=== PATIENT | male | born 1985 | race Caucasian/White ===

== ENCOUNTER 2022-10-02 10:17 | Emergency (ER) | payer OTHER, SELFPAY ==
[2022-10-02] VITALS (11 sets, daily range): BP systolic 95–118; BP diastolic 60–91; PULSE 102–120; RESP 15–25; TEMP 36.5–36.8; O2SAT 92–95; BMI 49.9
--- NOTE | 2022-10-02 10:36 | ECG_ITS ---
[facility] Test Date: 2022-10-02 Pat Name: SADIA MEJIA Department: Room: - Gender: Male Vc++ Developer: : 1985 Requested By: YVETTE QUINTANILLA Order Number: [id number] Reading MD: VINCENT WINKLER Measurements Intervals [place] Rate: 114 P: 73 DE: 136 QRS: 59 QRSD: 84 T: 13 QT: 350 QTc: 418 Interpretive Statements 1120 Sinus tachycardia 9140 abnormal rhythm ECG No previous ECG available for comparison Electronically Signed On 10-03-2022 6:40:24 EDT by VINCENT WINKLER
--- NOTE | 2022-10-02 10:36 | XR_ITS ---
The [address] [address] Patient Name: SADIA MEJIA MRN: [id number] date: 1985 Sex: M Assigned Patient Location: ER Current Patient Location: ER Accession/Order Number: [id number] Exam Date: 10/02/2022 10:52 Report Date: 10/02/2022 11:07 At the request of: DESHAUN WEI Procedure: XR chest 1V EXAM: XR chest 1V HISTORY: Shortness of breath. COMPARISON: None. TECHNIQUE: AP erect portable chest radiograph performed. FINDINGS: The trachea is normal. The heart size is normal. The cardiac mediastinal silhouette and hilar shadows are unremarkable. There are patchy densities within the lower chest bilaterally. There is no pleural effusion or pulmonary vascular congestion. There is no pneumothorax or osseous abnormality. XR/XR chest 1V IMPRESSION: Patchy densities within the lower chest bilaterally. In the right clinical setting this could represent a pneumonia. Appropriate medical treatment and a follow-up chest radiograph to confirm complete resolution recommended. Electronically authenticated by: AVELINA CLINE Date: 10/02/2022 11:07
[2022-10-02 10:43] LABS: Glucometer 239 mg/dL (74-106)
[2022-10-02 10:50] LABS: Basophils Absolute Auto 0.1 10^3/uL (0.0-0.1); Basophils Percent Auto 0.7 % (0.2-2.0); Eosinophils Absolute Auto 0.1 10^3/uL (0.0-0.7); Eosinophils Percent Auto 0.7 % (0.9-7.0); Hematocrit 43.8 % (42.0-54.0); Hemoglobin 15.1 g/dL (14.0-18.0); Immature Granulocytes Abs Auto 0.43 10^3/uL (0.00-0.03); Immature Granulocytes Pct Auto 4.4 % (0.0-0.5); Lymphocytes Absolute Auto 1.7 10^3/uL (1.2-3.8); Lymphocytes Percent Auto 17.8 % (20.5-60.0); Mean Corpuscular HGB Conc 34.5 g/dL (29.9-35.2); Mean Corpuscular Hemoglobin 29.1 pg (25.9-34.0); Mean Corpuscular Volume 84.4 fL (80.0-94.0); Mean Platelet Volume 10.9 fL (9.5-13.5); Monocytes Absolute Auto 0.4 10^3/uL (0.3-0.8); Monocytes Percent Auto 4.4 % (1.7-12.0); Platelet Count 625 10^3/uL (150-450); Red Blood Count 5.19 10^6/uL (4.70-6.10); Red Cell Distribution Width 14.6 % (11.0-15.0); White Blood Count 9.7 10^3/uL (4.0-11.0)
[2022-10-02] MEDS: 0.9 % SODIUM CHLORIDE 1,000 ML 1000 ML (10:51)
[2022-10-02 11:06] LABS: Acetone NEGATIVE (NEGATIVE)
[2022-10-02 11:16] LABS: Lactate/Lactic Acid 2.2 mmol/L (0.4-2.0)
[2022-10-02 11:18] LABS: Alanine Aminotransferase 86 U/L (16-63); Albumin Globulin Ratio 0.6; Alkaline Phosphatase 138 U/L (46-116); Anion Gap 19.4; Aspartate Amino Transferase 81 U/L (15-37); BUN Creatinine Ratio 21.6; Bilirubin Total 0.6 mg/dL (0.2-1.0); Calcium 9.5 mg/dL (8.5-10.1); Carbon Dioxide 20.8 mmol/L (21.0-32.0); Chloride 99 mmol/L (98-107); Estimated GFR (African America >60 (>=60); Estimated GFR (Non-African Ame >60 (>=60); Globulin 5.2 g/dL; Glucose 266 mg/dL (74-106); Potassium 3.2 mmol/L (3.5-5.1); Sodium 136 mmol/L (136-145); Total Protein 8.2 g/dL (6.4-8.2)
[2022-10-02 11:27] LABS: Troponin I High Sensitivity <4.0 pg/mL (4.0-76.1)
[2022-10-02 11:34] LABS: Creatine Kinase 127 U/L (39-308)
[2022-10-02] MEDS: POTASSIUM BICARBONATE/CIT 25 MEQ TABLET EFF 50 MEQ PO (11:39)
[2022-10-02] MEDS: LEVOFLOXACIN IN DEXTROSE 5 % 750 MG/150 ML IV.SOLN 100 MG IV (11:40)
[2022-10-02] MEDS: 0.9 % SODIUM CHLORIDE 1,000 ML 1000 ML IV ×2 (11:40→11:41)
[2022-10-02 13:57] LABS: Bilirubin Urine SMALL (NEGATIVE); Blood Urine NEGATIVE (NEGATIVE); Clarity Urine CLEAR (CLEAR); Color Urine DK. YELLOW (YELLOW); Glucose Urine UA 100 mg/dL (NEGATIVE); Ketones Urine NEGATIVE (NEGATIVE); Leukocyte Esterase Urine NEGATIVE (NEGATIVE); Nitrite Urine NEGATIVE (NEGATIVE); Protein Urine 30 mg/dL (NEG/TRACE); Specific Gravity Urine >=1.030 (1.005-1.025); pH Urine 6.5 (5.0-9.0)
[2022-10-02 14:00] LABS: Urine Microscopic Indicated YES
[2022-10-02 14:12] LABS: Amorphous Sediment Urine RARE; Bacteria Urine TRACE #/HPF (NONE SEEN); Cast Seen? SEEN #/LPF (NONE SEEN); Crystals Seen? Seen #/HPF (None Seen); Fine Granular Casts Urine FEW; Mucus Urine MODERATE (NONE SEEN); RBC Urine 0-2 #/HPF (0-2); Squamous Epithelial Cell Urine RARE #/LPF (NONE/RARE)
[2022-10-02 14:13] LABS: Urine Culture Indicated YES
--- NOTE | 2022-10-02 15:12 | ED_ITS ---
HPI - General Adult General Chief complaint: Arrhythmia/Palpitations Stated complaint: FAST HEARTRATE Time Seen by Provider: 10/02/22 10:45 Source: family Mode of arrival: walk-in Limitations: no limitations History of Present Illness HPI narrative: Patient is a 37-year-old male who is presenting with months of fatigue, weakness, intermittent shortness of breath, lightheaded, dizzy, not feeling well. Patient's symptoms have progressively gotten worse since the beginning of September the last couple weeks. Patient traveled to [place] to see a friend, and his symptoms worsen since. Patient has seen several urgent cares with some minor testing and no answers. Patient has been tested for influenza, that of the negative. Patient's aunt is at bedside. Patient's mother recently 6 months ago, aunt is in the process along with other family members to gain guardianship of the patient. And told me outside the room that patient's mother 6 months ago who was and sister. 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 However, he is by himself, can take care of himself, works at [employer]. Patient has not worked since the beginning of September when he returned from [place]. Patient attempted to work today, and he was feeling lightheaded, dizzy, fatigue, weak, short of breath, and patient was sent to the Emergency Room for evaluation. Patient currently has no headache, no chest pain or shortness of breath. No abdominal pain, nausea vomiting. Patient feels thirsty. . All systems are negative except as noted/marked. All systems reviewed and otherwise negative. . Nurses note and vital signs reviewed and patient is not hypoxic. General: The patient appears well and in no apparent distress. Patient is resting comfortably on cart. Patient is not toxic, lethargic, or listless Skin: Warm, dry, no pallor noted. There is no rash noted. No petechiae, purpura. Head: Normocephalic, atraumatic Eye: Normal conjunctiva, no drainage, EOMI. PERRL Ears, Nose, Mouth, and Throat: oral mucosa is moist. Nares patent. Mouth without vesicles. Cardiovascular: Regular Rate and Rhythm, no murmur, gallop, rub Respiratory: Patient is in no distress, no accessory muscle use, lungs are clear to auscultation, no wheezing, rales or rhonchi Back: non-tender, no CVA tenderness bilaterally to percussion. No CT LS midline pain GI: soft, Obese,no tenderness to palpation, no masses appreciated. No rebound, guarding, or rigidity noted. No flank pain bilateral, No distention Musculoskeletal: Patient has full range of motion of all of the extremities, no motor, sensory, or focal neurological deficits Neurological: A&O x3, normal speech Psychiatric: Cooperative Related Data Previous Rx's Medication Instructions Recorded levofloxacin 750 mg tablet 750 mg PO DAILY 6 days #6 tabs 10/02/22 metformin 500 mg tablet 500 mg PO BID #30 tabs 10/02/22 Allergies Allergy/AdvReac Type Severity Reaction Status Date / Time Penicillins Allergy Severe Rash Verified 10/02/22 10:30 PFSH PFS Social History Smoking status: Never smoker Exam Constitutional Vital Signs, click to edit/add: Last Vital Signs Temp 97.7 F 10/02/22 16:07 Pulse 102 H 10/02/22 12:00 Resp 25 H 10/02/22 12:00 BP 109/91 H 10/02/22 15:28 Pulse Ox 94 L 10/02/22 11:22 O2 Del Method Room Air 10/02/22 10:31 Course Vital Signs Vital signs: Vital Signs Pulse Rate 117 H 10/02/22 10:28 Respiratory Rate 18 10/02/22 10:28 Pulse Oximetry 94 L 10/02/22 10:28 Temperature 97.7 F 10/02/22 16:07 Pulse Rate 102 H 10/02/22 12:00 Respiratory Rate 25 H 10/02/22 12:00 Blood Pressure 109/91 H 10/02/22 15:28 Pulse Oximetry 94 L 10/02/22 11:22 Oxygen Delivery Method Room Air 10/02/22 10:31 Medical Decision Making [facility] Narrative Medical decision making narrative: EKG interpretation. 10:34 AM. Sinus tachycardia at 114, normal axis deviation. No acute ST elevation, no acute ectopy. QTC of 418. Patient's blood sugar was initially tested when he arrived, it was close to 250. Patient had a total of 3 L of IV fluids given. Patient was hypotensive and tachycardic when he arrived, sepsis measures were initiated. Patient has new onset diabetes. Patient is also been given IV Levaquin for possible early bilateral pneumonia. Greater than 30 minutes has been spent at bedside multiple times the patient in and explaining diabetes, education on diet, exercise, medication, reestablishing PCP which they will with Dr. Chacon. Dr. Donaldson use to be the patient's PCP. Patient will continue Levaquin For another 6 days. Paatient was started on metformin twice a day. Patient feels much better after 3 L of IV fluid, patient was not able to urinate until 2.5 L of fluid had been transfused. He has feels comfortable taking patient home. Diabetic education information was given to patient and aunt as well. They will call Dr. Chacon to establish appointment and follow-up with diabetic education as well. Patient looks better and feels better at discharge. Patient no longer feels lightheaded, weak and dizzy at discharge. Critical care time 35 minutes exclusive from separate billable procedures that were performed. The following was considered in the determination of critical care but not limited to the level of medical decision making, intensive cardiac and/or respiratory monitoring, frequent vital sign monitoring, evaluation of laboratory studies, evaluation of radiographic studies, oxygen monitoring, and constant monitoring and speaking to family at bedside . Lab Data Lab results reviewed: Yes I reviewed the patient's lab results Labs: Lab Results 10/02/22 10/02/22 10/02/22 Range/Units 10:30 10:41 13:50 WBC 9.7 (4.0-11.0) 10^3/uL RBC 5.19 (4.70-6.10) 10^6/uL Hgb 15.1 (14.0-18.0) g/dL Hct 43.8 (42.0-54.0) % MCV 84.4 (80.0-94.0) fL MCH 29.1 (25.9-34.0) pg MCHC 34.5 (29.9-35.2) g/dL RDW 14.6 (11.0-15.0) % Plt Count 625 H (150-450) 10^3/uL MPV 10.9 (9.5-13.5) fL Neut % (Auto) 72.0 (43.0-75.0) % Lymph % (Auto) 17.8 L (20.5-60.0) % [place] % (Auto) 4.4 (1.7-12.0) % Eos % (Auto) 0.7 L (0.9-7.0) % Baso % (Auto) 0.7 (0.2-2.0) % Neut # (Auto) 7.0 H (1.4-6.5) 10^3/uL Lymph # (Auto) 1.7 (1.2-3.8) 10^3/uL [place] # (Auto) 0.4 (0.3-0.8) 10^3/uL Eos # (Auto) 0.1 (0.0-0.7) 10^3/uL Baso # (Auto) 0.1 (0.0-0.1) 10^3/uL Abs Immat Gran (auto) 0.43 H (0.00-0.03) 10^3/uL Imm/Tot Granulo (auto) 4.4 H (0.0-0.5) % Sodium 136 (136-145) mmol/L Potassium 3.2 L (3.5-5.1) mmol/L Chloride 99 (98-107) mmol/L Carbon Dioxide 20.8 L (21.0-32.0) mmol/L Anion Gap 19.4 BUN 21.0 H (7.0-18.0) mg/dL Creatinine 0.97 (0.70-1.30) mg/dL Est GFR ( Amer) >60 (>=60) Est GFR (Non-Af Amer) >60 (>=60) BUN/Creatinine Ratio 21.6 Glucose 266 H (74-106) mg/dL Lactate 2.2 H* (0.4-2.0) mmol/L Calcium 9.5 (8.5-10.1) mg/dL Total Bilirubin 0.6 (0.2-1.0) mg/dL AST 81 H (15-37) U/L ALT 86 H (16-63) U/L Alkaline Phosphatase 138 H (46-116) U/L Total Creatine Kinase 127 (39-308) U/L Troponin I High Sens <4.0 L (4.0-76.1) pg/mL Total Protein 8.2 (6.4-8.2) g/dL Albumin 3.0 L (3.4-5.0) g/dL Globulin 5.2 g/dL Albumin/Globulin Ratio 0.6 Lipase 472.0 H (73.0-393.0) U/L Urine Color Dk. yellow (YELLOW) Urine Clarity Clear (CLEAR) Urine pH 6.5 (5.0-9.0) Ur Specific [place] >=1.030 A (1.005-1.025) Urine Protein 30 A (NEG/TRACE) mg/dL Urine Glucose (UA) 100 A (NEGATIVE) mg/dL Urine Ketones Negative (NEGATIVE) mg/dL Urine Occult Blood Negative (NEGATIVE) Urine Nitrite Negative (NEGATIVE) Urine Bilirubin Small A (NEGATIVE) Urine Urobilinogen 1.0 (0.2-1.0) EU/dL Ur Leukocyte Esterase Negative (NEGATIVE) Urine RBC 0-2 (0-2) #/HPF Urine WBC 5-10 A (NONE SEEN) #/HPF Ur Squamous Epith Cells Rare (NONE/RARE) #/LPF Urine Crystals Seen A (None Seen) #/HPF Amorphous Sediment Rare Urine Bacteria Trace A (NONE SEEN) #/HPF Urine Casts Seen A (NONE SEEN) #/LPF Fine Granular Casts Few Urine Mucus Moderate A (NONE SEEN) Ur Culture Indicated? Yes Acetone, Qual Negative (NEGATIVE) POC Glucose 239 H (74-106) mg/dL 10/02/22 Range/Units 16:02 WBC (4.0-11.0) 10^3/uL RBC (4.70-6.10) 10^6/uL Hgb (14.0-18.0) g/dL Hct (42.0-54.0) % MCV (80.0-94.0) fL MCH (25.9-34.0) pg MCHC (29.9-35.2) g/dL RDW (11.0-15.0) % Plt Count (150-450) 10^3/uL MPV (9.5-13.5) fL Neut % (Auto) (43.0-75.0) % Lymph % (Auto) (20.5-60.0) % [place] % (Auto) (1.7-12.0) % Eos % (Auto) (0.9-7.0) % Baso % (Auto) (0.2-2.0) % Neut # (Auto) (1.4-6.5) 10^3/uL Lymph # (Auto) (1.2-3.8) 10^3/uL [place] # (Auto) (0.3-0.8) 10^3/uL Eos # (Auto) (0.0-0.7) 10^3/uL Baso # (Auto) (0.0-0.1) 10^3/uL Abs Immat Gran (auto) (0.00-0.03) 10^3/uL Imm/Tot Granulo (auto) (0.0-0.5) % Sodium (136-145) mmol/L Potassium (3.5-5.1) mmol/L Chloride (98-107) mmol/L Carbon Dioxide (21.0-32.0) mmol/L Anion Gap BUN (7.0-18.0) mg/dL Creatinine (0.70-1.30) mg/dL Est GFR ( Amer) (>=60) Est GFR (Non-Af Amer) (>=60) BUN/Creatinine Ratio Glucose (74-106) mg/dL Lactate (0.4-2.0) mmol/L Calcium (8.5-10.1) mg/dL Total Bilirubin (0.2-1.0) mg/dL AST (15-37) U/L ALT (16-63) U/L Alkaline Phosphatase (46-116) U/L Total Creatine Kinase (39-308) U/L Troponin I High Sens (4.0-76.1) pg/mL Total Protein (6.4-8.2) g/dL Albumin (3.4-5.0) g/dL Globulin g/dL Albumin/Globulin Ratio Lipase (73.0-393.0) U/L Urine Color (YELLOW) Urine Clarity (CLEAR) Urine pH (5.0-9.0) Ur Specific [place] (1.005-1.025) Urine Protein (NEG/TRACE) mg/dL Urine Glucose (UA) (NEGATIVE) mg/dL Urine Ketones (NEGATIVE) mg/dL Urine Occult Blood (NEGATIVE) Urine Nitrite (NEGATIVE) Urine Bilirubin (NEGATIVE) Urine Urobilinogen (0.2-1.0) EU/dL Ur Leukocyte Esterase (NEGATIVE) Urine RBC (0-2) #/HPF Urine WBC (NONE SEEN) #/HPF Ur Squamous Epith Cells (NONE/RARE) #/LPF Urine Crystals (None Seen) #/HPF Amorphous Sediment Urine Bacteria (NONE SEEN) #/HPF Urine Casts (NONE SEEN) #/LPF Fine Granular Casts Urine Mucus (NONE SEEN) Ur Culture Indicated? Acetone, Qual (NEGATIVE) POC Glucose 213 H (74-106) mg/dL ECG Data Attestation: I personally reviewed and interpreted this ECG as follows: Critical Care Time Critical Care Time Total Critical Care Time: 35 (Critical care time 35 minutes exclusive from separate billable procedures that were performed. The following was considered in the determination of critical care but not limited to the level of medical decision making, intensive cardiac and/or respiratory monitoring, frequent vital sign monitoring, ) Discharge Plan Discharge Chief Complaint: Arrhythmia/Palpitations Clinical Impression: Palpitations, Diabetes mellitus, new onset, Pneumonia, Dehydration, Acute hypokalemia Patient Disposition: Home, Self-Care Time of Disposition Decision: 15:22 Prescriptions / Home Meds: New metformin 500 mg tablet 500 mg PO BID Qty: 30 0RF levofloxacin 750 mg tablet 750 mg PO DAILY 6 Days Qty: 6 0RF Instructions: Heart Palpitations (ED), Dehydration (ED), Potassium Content of Foods List (ED), Hypokalemia (ED), Pneumonia (ED), Type 2 Diabetes in the Older Adult (ED), Diabetes and Nutrition (ED), How to Check your Blood Sugar (ED) Additional Instructions: Increase fluids at home. Drink Gatorade 0 and water. Call the hospital for [phone] to follow up and set up with a Diabetic Education; #[id number] to [facility], diabetic education. Taken next dose of Levaquin tomorrow. Increase fluids. Take metformin daily. He'll need to follow up with PCP and diabetic education information has been given to as well that learn how to start checking her blood sugars, taking medication properly, diet, exercise, etc. Try to increase potassium in year diet as well, with or issues, grimace, bananas, multivitamins as well. Stand Alone Forms: Portal Instructions Referrals: YVETTE CHACON [Primary Care Provider] - 1 week Discharge Date/Time: 10/02/22 16:13
[2022-10-02 16:04] LABS: Glucometer 213 mg/dL (74-106)
== END 2022-10-02 16:13 | disposition home or self-care (01) ==
PROVIDERS: Emergency Provider Emergency Medicine; PCP Family Medicine
DX: J18.9 Pneumonia, unspecified organism (principal); R00.2 Palpitations; E11.9 Type 2 diabetes mellitus without complications; E86.0 Dehydration; E87.6 Hypokalemia
CPT/HCPCS: 36415; 36416; 71045; 80053; 81001; 81003; 81015; 82009; 82550; 83605; 83690; 84484; 85025; 87040; 87086; 93005; 96365; 96366; 99285

== ENCOUNTER 2023-04-14 15:23 | Outpatient (RCR) | payer OTHER, SELFPAY | END 2023-04-25 12:13 | disposition home or self-care (01) | LOC: PT 15:23 | PROVIDERS: PCP Family Medicine; Visit Provider Family Medicine | DX: M25.512 Pain in left shoulder (principal) | CPT/HCPCS: 97110; 97112; 97162 ==